=== PATIENT | female | born 1960 | race Caucasian/White ===

== ENCOUNTER 2016-08-31 15:27 | Emergency (ER) | payer OTHER ==
[~2016-08-31 15:27] MED LIST: METFORMIN HCL500 MG PO
[2016-08-31 19:18] VITALS: BP 141/70
== END 2016-08-31 19:18 | disposition home or self-care (01) ==
LOC: ED 15:27
DX: F41.9 Anxiety disorder, unspecified (principal); E11.9 Type 2 diabetes mellitus without complications; Z79.84 Long term (current) use of oral hypoglycemic drugs; Z79.899 Other long term (current) drug therapy
CPT/HCPCS: 82962

== ENCOUNTER 2017-11-30 03:33 | Inpatient (IN) | payer OTHER ==
[~2017-11-30] VITALS: Ht 157.5 cm; Wt 78.9 kg
[2017-11-30 03:43] VITALS: Ht 157.5 cm; Wt 78.9 kg
[2017-11-30 04:36] LABS: CALCIUM 9.4 mg/dL (8.5-10.1); CARBON DIOXIDE 25.9 mmol/L (21-32); CHLORIDE SERUM 102 mmol/L (98-107); CREATININE SERUM 0.8 mg/dL (0.6-1.0); GFR1 > 60 mL/min; GLUCOSE SERUM 154 mg/dL (74-106); POTASSIUM SERUM 3.7 mmol/L (3.5-5.1); SODIUM SERUM 138 mmol/L (136-145)
[2017-11-30 04:40] LABS: ALBUMIN 3.6 g/dL (3.4-5.0); ALKALINE PHOSPHATASE 161 U/L (46-116); ALT/SGPT 58 U/L (14-59); AST/SGOT 47 U/L (15-37); BILIRUBIN TOTAL 0.8 mg/dL (0.20-1.00); LIPASE 131 IU/L (73-393)
[2017-11-30 04:41] LABS: TOTAL PROTEIN, SERUM 8.6 g/dL (6.4-8.2)
[2017-11-30 04:45] LABS: UA SPECIFIC GRAVITY 1.025 (1.005-1.035); microscopic required? YES; urine erythrocyte 3+ (NEGATIVE)
[2017-11-30 04:47] LABS: BASOPHIL % 0.2 % (0-2); PLATELET COUNT 219 x10^3mcL (130-400); RED CELL DISTRIBUTION WIDTH 13.2 % (11.5-14.5)
[2017-11-30] MEDS ORDERED: NOR10T PO (05:31)
[2017-11-30] MEDS ORDERED: SOMA350 MG PO (05:32)
[2017-11-30 10:00] VITALS: BP 137/70
[2017-11-30 17:46] VITALS: BP 137/71
[2017-11-30 20:35] VITALS: BP 147/75
[2017-12-01 05:30] VITALS: BP 141/59
[2017-12-01 09:13] VITALS: BP 142/66
[2017-12-01 11:35] VITALS: BP 125/81
[2017-12-01 14:19] LABS: BASOPHIL % 0.6 % (0-2); PLATELET COUNT 168 x10^3mcL (130-400); RED CELL DISTRIBUTION WIDTH 13.6 % (11.5-14.5)
[2017-12-01] MEDS ORDERED: CEFDINIR300 M1 PO (14:42)
[2017-12-01 15:14] LABS: CALCIUM 9.1 mg/dL (8.5-10.1); CARBON DIOXIDE 26.4 mmol/L (21-32); CHLORIDE SERUM 104 mmol/L (98-107); CREATININE SERUM 0.7 mg/dL (0.6-1.0); GFR1 > 60 mL/min; GLUCOSE SERUM 104 mg/dL (74-106); POTASSIUM SERUM 3.6 mmol/L (3.5-5.1); SODIUM SERUM 139 mmol/L (136-145)
[2017-12-01 15:15] VITALS: BP 125/81
== END 2017-12-01 16:15 | disposition home or self-care (01) | DRG 872 ==
LOC: ED 03:33 → MU 05:59
PROVIDERS: Emergency Medicine; Internal Medicine Pulmonary Disease
DX: A41.9 Sepsis, unspecified organism (principal); N12 Tubulo-interstitial nephritis, not specified as acute or chronic; N39.0 Urinary tract infection, site not specified; E86.9 Volume depletion, unspecified; E11.65 Type 2 diabetes mellitus with hyperglycemia
CPT/HCPCS: 82962; J0696; J1885; J2270; J2405; J3490; J7030; Q0092

== ENCOUNTER 2018-08-16 07:30 | Emergency (ER) | payer OTHER ==
[~2018-08-16] VITALS: Ht 157.5 cm; Wt 78.9 kg
[~2018-08-16 07:30] MED LIST changes: +CEFDINIR300 M1 PO; +NOR10T PO; +SOMA350 MG PO
[2018-08-16 07:37] VITALS: Ht 157.5 cm; Wt 78.9 kg
[2018-08-16 08:13] LABS: PLATELET COUNT 171 x10^3mcL (130-400)
[2018-08-16 08:16] LABS: RED CELL DISTRIBUTION WIDTH 13.1 % (11.5-14.5)
[2018-08-16 08:25] LABS: BAND NEUTROPHIL 2 % (0-10); BASOPHIL 0 % (0-2); SEGMENTED NEUTROPHILS 94 % (37-75)
[2018-08-16 08:26] LABS: rbc morphology (normal/abnorm) ABNORMAL (NORMAL)
[2018-08-16 08:27] LABS: PLATELET MORPHOLOGY PLATELETS DECREASED
[2018-08-16 09:15] LABS: CALCIUM 9.6 mg/dL (8.5-10.1); CHLORIDE SERUM 104 mmol/L (98-107); GFR1 > 60 mL/min; GLUCOSE SERUM 164 mg/dL (74-106); POTASSIUM SERUM 3.8 mmol/L (3.5-5.1); SODIUM SERUM 140 mmol/L (136-145)
[2018-08-16 09:19] LABS: ALBUMIN 3.4 g/dL (3.4-5.0); ALKALINE PHOSPHATASE 130 U/L (46-116); ALT/SGPT 55 U/L (14-59); AMYLASE 86 U/L (25-115); AST/SGOT 38 U/L (15-37); BILIRUBIN TOTAL 0.6 mg/dL (0.20-1.00); LIPASE 148 IU/L (73-393); TOTAL PROTEIN, SERUM 8.1 g/dL (6.4-8.2)
[2018-08-16 09:44] LABS: microscopic required? YES; urine erythrocyte 2+ (NEGATIVE)
[2018-08-16 09:54] VITALS: BP 141/79
== END 2018-08-16 09:56 | disposition home or self-care (01) ==
LOC: ED 07:30
PROVIDERS: Emergency Medicine
DX: F12.188 Cannabis abuse with other cannabis-induced disorder (principal); E11.9 Type 2 diabetes mellitus without complications; M54.9 Dorsalgia, unspecified
CPT/HCPCS: J1630; J1885

== ENCOUNTER 2019-04-02 05:01 | Emergency (ER) | payer OTHER ==
[~2019-04-02] VITALS: Ht 157.5 cm; Wt 78.6 kg
[2019-04-02 05:13] VITALS: BP 120/81; Ht 157.5 cm; Wt 78.6 kg
== END 2019-04-02 07:15 | disposition left against medical advice (07) ==
LOC: ED 05:01
DX: Z53.21 Procedure and treatment not carried out due to patient leaving prior to being seen by health care provider (principal)

== ENCOUNTER 2019-04-02 08:53 | Emergency (ER) | payer OTHER ==
[~2019-04-02] VITALS: Ht 157.5 cm; Wt 78.7 kg
[2019-04-02 10:50] VITALS: Ht 157.5 cm; Wt 78.7 kg
[2019-04-02 12:45] LABS: RED CELL DISTRIBUTION WIDTH 13.4 % (11.5-14.5)
[2019-04-02 12:46] LABS: CALCIUM 9.1 mg/dL (8.5-10.1); CARBON DIOXIDE 25.7 mmol/L (21-32); CHLORIDE SERUM 102 mmol/L (98-107); CREATININE SERUM 0.8 mg/dL (0.6-1.0); GFR1 > 60 mL/min; GLUCOSE SERUM 147 mg/dL (74-106); POTASSIUM SERUM 3.4 mmol/L (3.5-5.1); SODIUM SERUM 137 mmol/L (136-145)
[2019-04-02 12:50] LABS: ALBUMIN 3.4 g/dL (3.4-5.0); ALKALINE PHOSPHATASE 127 U/L (46-116); ALT/SGPT 73 U/L (14-59); AST/SGOT 44 U/L (15-37); TOTAL PROTEIN, SERUM 8.2 g/dL (6.4-8.2)
[2019-04-02 13:17] LABS: BAND NEUTROPHIL 4 % (0-10); BASOPHIL 0 % (0-2); SEGMENTED NEUTROPHILS 95 % (37-75)
[2019-04-02 13:18] LABS: rbc morphology (normal/abnorm) ABNORMAL (NORMAL)
[2019-04-02 13:21] LABS: PLATELET COUNT 205 x10^3mcL (130-400)
[2019-04-02 13:46] VITALS: BP 133/74
== END 2019-04-02 13:46 | disposition home or self-care (01) ==
LOC: ED 08:53
PROVIDERS: Emergency Medicine
DX: K52.9 Noninfective gastroenteritis and colitis, unspecified (principal); E11.9 Type 2 diabetes mellitus without complications; M54.5 Low back pain
CPT/HCPCS: 87804; J7030

== ENCOUNTER 2019-09-21 14:39 | Emergency (ER) | payer OTHER, SELFPAY ==
[~2019-09-21] VITALS: Ht 157.5 cm; Wt 77.1 kg
[2019-09-21 14:45] VITALS: Ht 157.5 cm; Wt 77.1 kg
[2019-09-21 15:41] LABS: BASOPHIL % 0.4 % (0-2); PLATELET COUNT 191 x10^3mcL (130-400); RED CELL DISTRIBUTION WIDTH 13.6 % (11.5-14.5)
[2019-09-21 16:13] LABS: microscopic required? YES; urine erythrocyte TRACE (NEGATIVE)
[2019-09-21 16:17] LABS: ALBUMIN 3.6 g/dL (3.4-5.0); ALKALINE PHOSPHATASE 140 U/L (46-116); ALT/SGPT 57 U/L (14-59); AST/SGOT 43 U/L (15-37); BILIRUBIN TOTAL 0.47 mg/dL (0.20-1.00); C REACTIVE PROTEIN 1.5 mg/dL (<=0.9); CALCIUM 9.4 mg/dL (8.5-10.1); CARBON DIOXIDE 26.7 mmol/L (21-32); CHLORIDE SERUM 104 mmol/L (98-107); CREATININE SERUM 0.9 mg/dL (0.6-1.0); GFR1 > 60 mL/min; GLUCOSE SERUM 127 mg/dL (74-106); LACTIC DEHYDROGENASE (LDH) 168 U/L (100-190); SODIUM SERUM 141 mmol/L (136-145); TOTAL PROTEIN, SERUM 7.7 g/dL (6.4-8.2)
[2019-09-21 18:50] VITALS: BP 137/75
== END 2019-09-21 18:50 | disposition home or self-care (01) ==
LOC: ED 14:39
PROVIDERS: Specialist
DX: U07.1 COVID-19 (principal); E11.9 Type 2 diabetes mellitus without complications
CPT/HCPCS: 36600; 83880; 87804; Q0092

== ENCOUNTER 2020-02-12 11:17 | Emergency (ER) | payer OTHER ==
[~2020-02-12] VITALS: Ht 165.1 cm; Wt 81.6 kg
[2020-02-12 11:31] VITALS: Ht 165.1 cm; Wt 81.6 kg
[2020-02-12 18:20] VITALS: BP 178/83
== END 2020-02-12 18:20 | disposition home or self-care (01) ==
LOC: ED 11:17
DX: M62.830 Muscle spasm of back (principal)
CPT/HCPCS: 82962; J1885